=== PATIENT | male | born 1980 | race Caucasian/White ===

== ENCOUNTER 2024-12-24 15:12 | Emergency (ER) | payer SELFPAY ==
[~2024-12-24] VITALS: Ht 180.3 cm; Wt 105.0 kg
[2024-12-24 15:14] VITALS: O2SAT 100
[2024-12-24] MEDS: CYCLOBENZAPRINE 10MG TABLET PO ONE (18:05)
[2024-12-24] MEDS: LIDOCAINE 5% PATCH TOP STA (18:05)
[2024-12-24] MEDS: IBUPROFEN 600MG TABLET PO ONE (18:05)
[2024-12-24] MEDS ORDERED: LIDO700A30 TP (18:16)
[2024-12-24] MEDS ORDERED: KETO10TA2 MT (18:16)
[2024-12-24] MEDS ORDERED: CYCL10TA21 MT (18:16)
[2024-12-24 18:37] VITALS: BP 150/90; PULSE 95; RESP 18; TEMP 36.9; O2SAT 95
== END 2024-12-24 18:38 | disposition home or self-care (01) ==
LOC: ER 15:15
DX: S09.90XA Unspecified injury of head, initial encounter (principal); M54.2 Cervicalgia; M54.6 Pain in thoracic spine; M25.522 Pain in left elbow; M25.562 Pain in left knee; W00.0XXA Fall on same level due to ice and snow, initial encounter; Y93.89 Activity, other specified; Y92.89 Other specified places as the place of occurrence of the external cause; Y99.8 Other external cause status
CPT/HCPCS: 99284; A4606